=== PATIENT | female | born 1970 | race Caucasian/White ===

== ENCOUNTER 2020-05-22 11:06 | Outpatient (CLI) | payer BC, SELFPAY ==
--- NOTE | ~2020-05-22 | XR_ITS ---
XR hip RT min 3V w AP pelvis 05/22/2020 11:31 Indication: Right hip pain Procedure: 4 views right hip including AP pelvis Comparison: No prior studies for comparison. Findings: There is moderate osteoarthritis of the right hip. There is a small loose body in lateral t o the joint space. No fracture or traumatic malalignment. No significant soft tissue abnormality. No radiopaque foreign body. Impression: 1: Moderate osteoarthritis of the right hip. Reviewed, dictated and finalized at location B. F TECHNICIAN X RAY Impression: 1: Moderate osteoarthritis of the right hip.
== END 2020-05-22 11:07 | disposition home or self-care (01) ==
PROVIDERS: PCP Physician Assistant; Visit Provider Physician Assistant
DX: M16.11 Unilateral primary osteoarthritis, right hip (principal)
CPT/HCPCS: 73502

== ENCOUNTER → 2020-07-16 17:51 | Outpatient (CLI) | payer BC, SELFPAY ==
--- NOTE | ~2020-07-16 | MM_ITS ---
EXAMINATION: MM screening chrissy BI w leonor HISTORY: Screening TECHNIQUE: Craniocaudal and mediolateral oblique 3-D tomosynthesis images were obtained and synthetic 2-D images were generated. CAD analysis was submitted and interpreted. COMPARISON: Comparison to multiple prior studies sequentially, with oldest reviewed study dated 09/01. BREAST PARENCHYMAL COMPOSITION: The breasts are heterogeneously dense, which may obscure small masses . FINDINGS: There is no evidence of suspicious mass, calcification, or architectural distortion to sugg est malignancy in either breast. There has been no suspicious interval change. IMPRESSION: 1. No mammographic evidence of malignancy. 2. Recommend routine screening mammography in one year. BI-RADS Category 1: Negative Reviewed, dictated and finalized at location A. EGE SERVICE OFFICER
== END ==
PROVIDERS: PCP Physician Assistant; Visit Provider Physician Assistant
DX: Z12.31 Encounter for screening mammogram for malignant neoplasm of breast (principal)
CPT/HCPCS: 77063; 77067

== ENCOUNTER 2020-11-05 10:19 | Emergency (ER) | payer BC, SELFPAY ==
--- NOTE | ~2020-11-05 | XR_ITS ---
EXAMINATION: XR chest 2V EXAM DATE: 11/05/2020 10:54 INDICATION: Cough x 4 days, fever, hx of asthma . TECHNIQUE: Frontal and lateral projections of the chest obtained and reviewed. There is no prior harlan dy for comparison. FINDINGS: Patchy ill-defined multisegmental left lower lobe acute airspace disease, appearance most c onsistent with developing bacterial pneumonia. Right lung is clear. No pneumothorax or pleural effusi on. Cardiomediastinal silhouette is normal. There are no osseous abnormalities identified. IMPRESSION: Nonconfluent patchy left basilar acute airspace disease probably pneumonia. Reviewed, dictated and finalized at location A. IMPRESSION: Nonconfluent patchy left basilar acute airspace disease probably pn eumonia.
[2020-11-05 10:25] VITALS: BP 118/78; PULSE 95; RESP 12; TEMP 36.6; O2SAT 97
--- NOTE | 2020-11-05 10:32 | ED.GENADULT ---
HPI - General Adult General Chief complaint: Upper Respiratory Infection Stated complaint: covid Time Seen by Provider: 11/05/20 10:32 Source: patient and RN notes reviewed Mode of arrival: ambulatory Limitations: no limitations History of Present Illness HPI narrative: 49-year-old female presents with complains of cough, body aches, decrease appetite, fever, intermittent wheezing and shortness of breath for the past 4 days. Franny reports decrease appetite started initially with increasing upper respiratory symptoms daily with intermittent wheezing and shortness of breath. Increase usage of inhalers, Mucinex, Benadryl, Claritin, cough medicine containing codeine without relief. History of Asthma. Constant dry cough, intermittent productive yellow phlegm, and chest congestion. Rhinorrhea and nasal congestion. Denies sore throat. High fevers, fever as high as 101 Fahrenheit, orally, last noted today per Franny. Denies drooling, neck or throat swelling. No chest pain. No known exacerbation factors. Denies nausea, vomiting, and abdominal pain. Tolerating liquids well. LMP post menopausal. Remains active. The patient reports she have not been diagnosed with COVID-19. The patient reports she received 2 COVID-19 vaccines (name unknown). The patient reports she is not waiting for the results of a COVID-19 lab test. The patient reports she do not have chills, weakness, or fatigue. The patient reports she do not have any loss of taste or smell or diarrhea. Denies recent traveling. Denies concerns for COVID-19 or exposures. At this time, patient is not suspected of having COVID-19. Some parts of this dictation were generated by voice recognition software and may contain typographical and/or grammatical inaccuracies. Related Data Home Medications Medication Instructions Recorded Confirmed cholecalciferol (vitamin D3) 50 50 mcg PO DAILY 05/08/20 05/08/20 mcg (2,000 unit) capsule multivitamin with minerals 1 tablet PO DAILY 05/08/20 05/08/20 onntxbijmhbj-Fa-pvyv-minerals tablet PO 05/08/20 05/08/20 vitamin B complex 1 tablet PO DAILY 05/08/20 05/08/20 Allergies Allergy/AdvReac Type Severity Reaction Status Date / Time No Known Allergies Allergy Mild Verified 07/04/19 10:40 Review of Systems Review of Systems: Narrative: CONSTITUTIONAL: Complains of fever. Denies chills, sweats. EYES: Denies visual changes, redness, discharge. ENT: Complains of rhinorrhea, congestion. Denies sore throat, otalgia. CARDIOVASCULAR: Denies chest pain, palpitations, edema. RESPIRATORY: Complains of dyspnea, wheezing, cough, productiv e cough. GASTROINTESTINAL: Denies abdominal pain, nausea, vomiting, diarrhea. SKIN: Denies rash or itching. MUSCULOSKELETAL: Denies acute back pain, joint pain, or myalgia. NEUROLOGIC: Denies numbness or focal weakness. PSYCHIATRIC: Denies anxiety or depression. All systems reviewed & are unremarkable except as noted in HPI and below. [facility] Past Medical History Medical History (Updated 11/06/20 @ 00:01 by Reid Suarez) Asthma BMI 26.0-26.9,adult Bronchitis History of Graves' disease Hypothyroidism (acquired) Right hip pain Surgical History Surgical History No pertinent past surgical history Family History Family History (Updated 11/05/20 @ 11:00 by ROB Mota) Mother Diabetes mellitus Family history of cardiovascular disease Anxiety Heart disease Father Carcinoma of colon Social History Social History (Updated 11/05/20 @ 11:00 by ROB Mota) Smoking status: Former smoker Tobacco type: cigarettes Second hand tobacco smoke exposure: No Smoking end date: 06/21/86 Alcohol intake: current Substance use: never Substance use type: does not use Living arrangements: with family Occupation/Education: occupation Gender identity (if verbalized by the patient): Female Sexual Orie
[2020-11-05] MEDS: IPRATROPIUM BR 0.02% INH SOLN 0.5 MG/2.5 ML VIAL INHALATION (11:04)
[2020-11-05] MEDS: ALBUTEROL SULFATE NEB 2.5 MG/3 ML INH INHALATION (11:04)
[2020-11-05] MEDS: predniSONE 20 MG TABLET 60 MG PO (11:05)
[2020-11-05 11:25] VITALS: PULSE 93; RESP 24; O2SAT 100
[2020-11-05] MEDS: AZITHROMYCIN 250 MG TABLET 500 MG PO (11:31)
== END 2020-11-05 11:36 | disposition home or self-care (01) ==
PROVIDERS: Emergency Provider Nurse Practitioner Family; PCP Physician Assistant
DX: J18.9 Pneumonia, unspecified organism (principal); Z20.822 Contact with and (suspected) exposure to COVID-19; Z87.891 Personal history of nicotine dependence; J45.909 Unspecified asthma, uncomplicated; E03.9 Hypothyroidism, unspecified; E05.00 Thyrotoxicosis with diffuse goiter without thyrotoxic crisis or storm
CPT/HCPCS: 71046; 87426; 99213; A9270; C9803; G0463; J7512

== ENCOUNTER 2021-07-25 02:00 | Day surgery (SDC) | payer BC, SELFPAY ==
[2021-07-21 10:56] VITALS: BMI 25.7
--- NOTE | 2021-07-21 11:12 | PC.NURSE ---
Report to the Outpatient Waiting Room, entrance under the green pavilion located off [facility], at time 0600 on date 07/25/21. OR Time: 0730. - You will be asked a series of questions to screen for COVID 19 for your protection. - A mask is required within the hospital. - No visitors are allowed at this time. Preoperative COVID Testing Requirements: No COVID Test needed if: (proof is required; if not received patient will have Rapid Test prior to entry) - Patient has received COVID Vaccine at least 14 days prior to procedure date or - Patient has positive COVID test result within last 90 days of surgery date. COVID Test needed if above criteria is not met Patients may have clear liquids (water, carbonated beverages, clear teas, apple juice) until 3 hours prior to surgery with a maximum of 20 ounces. - No food from midnight until time of surgery Take the following medications with a SIP of water the morning of surgery: INHALERS, LEVOTHYROXINE Medications to discontinue per physician: VITAMINS/SUPPLEMENTS Date to take last dose: 07/21/[address] HAYES Please no make-up, nail italian, hairspray, perfume, deodorant, or body powder the day of surgery. No jewelry (including any body piercings) or valuables the day of surgery, leave them at home. Please take a shower or bath the night before, or the morning of, surgery with an antibacterial soap. Wear comfortable, loose fitting clothing. - Jewelry must be removed prior to entering the operating room. Rings and piercings that are not removed may be cut off. - The hospital will not accept responsibility for valuables. - Please leave all valuables, including medications, at home the day of surgery. If you are going home after surgery, a licensed security patrol driver must drive you home. - NO public transportation without another adult. - We recommend that an adult stay with you for 24 hours following discharge. - We also recommend that you do not drive, make important decision, drink alcoholic beverages, or take any drugs that were not prescribed by your health care provider for at least 24 hours after your discharge time. Follow any additional instructions given to you from your surgeon. Telephone instructions given to ELTNO PEREYRA and asked if any additional questions and then verbalized understanding. Patient advised to call surgeon office or pre surgery nurse liaison [phone] if any additional questions.
--- NOTE | 2021-07-24 16:55 | P.PNAN_ITS ---
Anes - Eval Pre Procedure Procedure: Operation Date: 07/25/21 07:30 Proposed Procedures p Arthrodesis of the First Metatarsal Phalangeal Joint Right Foot - Yakov Covarrubias JR, MD Date/Time: 07/24/21 16:55 Pre Op Diagnosis: Arthritis of First MPJ Right Foot Patient Data Age: 50 Gender: F Height: 1.6 m Weight: 65.77 kg Allergies Allergy/AdvReac Type Severity Reaction Status Date / Time No Known Allergies Allergy Mild Verified 07/21/21 10:52 Home Medications Medication Instructions Recorded Confirmed Type cholecalciferol (vitamin D3) 50 50 mcg PO DAILY 05/08/20 07/21/21 History mcg (2,000 unit) capsule fluticasone 250 mcg-salmeterol 50 1 inh INHALATION BID #60 ea 05/08/20 07/21/21 Rx mcg/dose blistr powdr for inhalation multivitamin with minerals 1 tablet PO DAILY 05/08/20 07/21/21 History vitamin B complex 1 tablet PO DAILY 05/08/20 07/21/21 History levothyroxine 150 mcg tablet 150 mcg PO DAILY #90 tablet 06/17/21 07/21/21 Rx meloxicam 15 mg tablet 15 mg PO DAILY #90 tablet 06/17/21 07/21/21 Rx albuterol sulfate 90 mcg/actuation See Rx Instructions .ROUTE 07/15/21 07/21/21 Rx aerosol inhaler .COMPLEX #8.5 g cetirizine [Zyrtec] 10 mg PO DAILY 07/21/21 07/21/21 History pseudoephedrine HCl [Sudafed 12 120 mg PO BID 07/21/21 07/21/21 History Hour] Patient hx anesthesia problems: post op nausea/vomiting Family hx anesthesia problems: none Results Review: All pre-operative results and documents have been reviewed as part of the pre-operative evaluation. [facility] Past Medical History Medical History (Updated 07/24/21 @ 16:56 by Juan Manuel Paul CRNA) Asthma BMI 26.0-26.9,adult Bronchitis Environmental allergies History of Graves' disease History of smoking Hypothyroidism (acquired) Mild persistent asthma without complication PONV (postoperative nausea and vomiting) Right hip pain Subcutaneous nodule of right foot Surgical History Surgical History No pertinent past surgical history Family History Family History Mother Diabetes mellitus Family history of cardiovascular disease Anxiety Heart disease Father Carcinoma of colon Social History Social History Smoking status: Former smoker Tobacco type: cigarettes Second hand tobacco smoke exposure: No Smoking end date: 06/21/86 Additional smoking assessment comments: 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
--- NOTE | ~2021-07-25 | XR_ITS ---
XR surgery orthopedic DATE: 07/25/2021 08:24 INDICATION: Right first metatarsophalangeal surgical fusion TECHNIQUE: 2 spot C-arm images, AP and lateral views 5 seconds fluoroscopy time Total DAP: 0.3015 cGycm2 COMPARISON: None FINDINGS: Plate and screws extend from the dorsal aspect of the neck of the first metatarsal to the d istal shaft of the proximal phalanx of the first digit, bridging the first metatarsophalangeal joint. IMPRESSION: Surgical fusion at the first metatarsophalangeal joint Reviewed, dictated and finalized at Location A. Reviewed, dictated and finalized at location B. COPTER TECHNICIAN
--- NOTE | 2021-07-25 07:10 | WPDANESEFPP ---
Anes - Eval Final PreProcedure Day of Procedure 07/25/21 07:10 Patient weight: normal Heart: regular rate and rhythm Lungs: clear to auscultation Airway: Mallampati scale class II Neurological: alert and oriented Last oral intake: >/= 8 hours ASA classification: II Emergent: no Anesthetic plan: proceed Anesthesia type and monitoring: general LMA and standard monitoring Results Review: All pre-operative results and documents have been reviewed as part of the pre-operative evaluation. Informed Consent: The patient's anesthetic plan and its attendant risks and benefits were discussed with the patient/family/POA. Questions were solicited and answers provided to the satisfaction of the patient/family/POA.
--- NOTE | 2021-07-25 07:11 | WPDHPUPDATE1 ---
History and Physical Update Update Date/Time: 07/25/21 07:11 History and Physical has been reviewed, including an updated exam of the patient. There are NO changes in the patient's condition. Risks, benefits, and alternatives have been discussed and questions answered. Patient agrees to proceed with procedure.
[2021-07-25 07:19] VITALS: BP 111/67; PULSE 85; RESP 16; TEMP 36.6; O2SAT 98
[2021-07-25] MEDS: LACTATED RINGERS 1,000 ML 30 ML IV CONT ×2 (07:20→08:43)
--- NOTE | 2021-07-25 07:32 | WPDANESPNB ---
Anes - Peripheral Nerve Block Date/Time: 07/25/21 07:32 I have discussed with the patient/family/POA the placement of a peripheral nerve block for post-operative pain management, including associated risks, benefits, complications, and side effects. Alternative methods of post-operative analgesia were detailed. Questions were solicited and answers provided to the satisfaction of the patient/family/POA. Time-Out: A pre-procedural Time-Out was completed immediately before starting the procedure and confirmed: Patient Identification, Site, Procedure, Patient Position and the Availability of Requisite Equipment. Clinical Indications: Acute post-operative pain management requested by the operative surgeon. Nerve Block Insertion Note Anes-nerve block: posterior fossa sciatic right and other (saphenous) Patient position: supine Needle: 22 gauge, stimulating, insulated echogenic needle. Needle length: 80 mm Technique: nerve stimulation lost at (mA) (0.4) Injectate: bupivacaine 0.5% with epi 5 mcg/ml (30) and dexamethasone (mg) (8) Observations: tolerated well Complications: none Procedure start time:: 721 Procedure end time:: 727
[2021-07-25] MEDS: ceFAZolin 2 GM/D5W 50 ML 2 GM/50 ML BAG IVPB (07:33)
--- NOTE | 2021-07-25 08:47 | W.PM.PROC2 ---
Procedure Note - Detailed Date of Procedure 07/25/21 Pre-op Diagnosis Arthritis of First metatarsal phalangeal joint right Foot Post-op Diagnosis same Procedure Performed Arthrodesis of the first metatarsal phalangeal joint right foot Surgeon Yakov Covarrubias JR, FABIAN Anesthesia general and regional Indications Pain to the right first metatarsal phalangeal joint right foot Description of Procedure PROCEDURE IN DETAIL: Under mild sedation, the patient was brought into the operating room, placed on the operating table in supine position. A pneumatic ankle tourniquet was placed about the patient's ipsilateral ankle. Following general LMA, a previous popliteal fossa block. The foot was then scrubbed, prepped, and draped in the usual aseptic manner. An Esmarch bandage was then used to exsanguinate the patient's foot and the pneumatic ankle tourniquet was then inflated. Surgery began in the following manner: Attention was directed to the dorsal aspect of the 1st metatarsophalangeal joint where there was a large subcutaneous prominence noted along the dorsomedial aspect of the joint. The incision was made starting along the central shaft of the 1st metatarsal and extending just proximal to the interphalangeal joint of the hallux. The incision was continued deep down through the subcutaneous tissues using sharp and blunt dissection. All bleeders were cauterized as necessary. At this point, the dissection was continued down to the level of the periosteum and capsular structures overlying the 1st metatarsophalangeal joint. A full length periosteum and capsular incision was made just medial to the extensor hallucis longus tendon. The periosteum and capsular structures were freed from the base of the proximal phalanx as well as the distal 1st metatarsal. At this point, the 1st metatarsophalangeal joint was identified. There was almost complete loss of articular cartilage to the head of the 1st metatarsal as well as the base of the proximal phalanx. There was significant broadening and hypertrophy of the 1st metatarsophalangeal joint. Utilizing a sagittal bone saw, the hypertrophied 1st metatarsal was resected dorsally, medially, and laterally. A power bur was used to make sure that there were no rough edges and also to further debride the hypertrophic 1st metatarsal. Next, a rongeur was used to resect all hypertrophic base of the proximal phalanx. At this point, the reamer system for the [employer] CrossCHECK system was used to denude the degenerative cartilage from the head of the 1st metatarsal as well as the base of the proximal phalanx. The cartilage and subchondral bone were fully debrided utilizing the reamer system until healthy bleeding bone was noted. Next, a 2-0 drill bit was used to further fenestrate the head of the 1st metatarsal as well as the base of the proximal phalanx in order to allow fusion across the 1st metatarsophalangeal joint. Next, a 0.045 inch K-wire was driven from the medial aspect of the base of the proximal phalanx into the head of the 1st metatarsal in order to serve as temporary fixation. A large steel plate was used to make sure that the hallux was in a rectus position both in the sagittal plane as well as the frontal and transverse plane. Excellent position of the hallux was noted. Next, a CrossCHECK plate was placed atop the 1st metatarsophalangeal joint held in position with [place] wires. Utilizing standard principles and techniques, the 2 distal drill holes were drilled and two 2.7mm mm fully-threaded locking screws were driven from dorsal to plantar holding the distal aspect of the plate intact. At this point, a 3.5mm lag screw was driven from dorsal distal to proximal plantar across the 1st metatarsophalangeal joint through the plate system with excellent compression noted after careful removal of the olive wire and temporary fixation from the 1st metatarsophalangeal joint. Next, 2 proximal drill hole
[2021-07-25 08:50] VITALS: BP 119/93; PULSE 89; RESP 14; TEMP 36.1; O2SAT 99
[2021-07-25] MEDS: fentaNYL CITRATE INJ (*CRX) 100 MCG/2 ML VIAL 25 MCG IV PUSH ×2 (09:04→09:07)
[2021-07-25 09:05] VITALS: BP 121/83; PULSE 78; RESP 16; O2SAT 100
[2021-07-25 09:20] VITALS: BP 105/77; PULSE 83; RESP 20; O2SAT 100
[2021-07-25] MEDS: diphenhydrAMINE HCl INJ 50 MG/ML VIAL 25 MG IV PUSH (09:27)
[2021-07-25 09:35] VITALS: BP 109/78; PULSE 79; RESP 14; O2SAT 99
[2021-07-25 09:55] VITALS: BP 120/76; PULSE 75; RESP 16
== END 2021-07-25 11:01 | disposition home or self-care (01) ==
PROVIDERS: Visit Provider Podiatrist Foot & Ankle Surgery
PROC: (CPT 28750; principal; 2021-07-25 07:30)
DX: M13.871 Other specified arthritis, right ankle and foot (principal); G89.18 Other acute postprocedural pain; E03.9 Hypothyroidism, unspecified; Z79.51 Long term (current) use of inhaled steroids; E05.00 Thyrotoxicosis with diffuse goiter without thyrotoxic crisis or storm; J45.30 Mild persistent asthma, uncomplicated; Z87.891 Personal history of nicotine dependence
CPT/HCPCS: 28750; 64445; 64450; A9270; C1713; J0690; J1100; J1170; J1200; J2250; J2405; J2704; J3010; J7120

== ENCOUNTER 2021-11-13 13:25 | Outpatient (CLI) | payer BC, SELFPAY ==
--- NOTE | ~2021-11-13 | XR_ITS ---
EXAMINATION: XR knee LT min 4V DATE: 11/13/2021 13:40 INDICATION: Left knee injury TECHNIQUE: AP, left and right oblique and flexed lateral views of the left knee were obtained. COMPARISON: None. FINDINGS: Alignment is normal. No fracture. Joint spaces appear normal on nonweightbearing imaging. No left kne e joint effusion. Soft tissues are unremarkable. IMPRESSION: 1. Negative left knee radiographs. Reviewed, dictated and finalized at location B.
== END 2021-11-13 13:26 ==
LOC: MICIMG 13:26
PROVIDERS: PCP Family Medicine; Visit Provider Physician Assistant
DX: S89.92XA Unspecified injury of left lower leg, initial encounter (principal)
CPT/HCPCS: 73564

== ENCOUNTER → 2022-05-21 15:44 | Outpatient (CLI) | payer BC, SELFPAY ==
--- NOTE | ~2022-05-21 | MR_ITS ---
EXAMINATION: MR knee LT wo con DATE: 05/21/2022 16:22 INDICATION: Left knee pain. TECHNIQUE: Magnetic resonance imaging (MRI) of the left knee was performed without intravenous contra st. Sequences included axial PD-weighted FS FSE, coronal PD-weighted FSE and PD-weighted FS FSE, sagi ttal PD-weighted FSE, and sagittal T2-weighted FS FSE. COMPARISON: Left knee radiographs 05/07/2022 FINDINGS: Medial compartment: There is a complex tear involving body and posterior horn of medial meniscus. There is partial-thickn ess cartilage loss of tibial condyle, deep at the medial articular surface. There is partial-thicknes s cartilage loss of femoral condyle, deep at the central and medial articular surface. Lateral compartment: Lateral meniscus is normal. Lateral compartment cartilage is normal. Patellofemoral compartment: There is deep partial thickness cartilage loss of patellar medial facet with mild subchondral edema-l lior marrow signal intensity. The trochlear cartilage is normal. Ligaments and tendons: The anterior and posterior cruciate ligaments are normal. There are changes of prior sprains of media l collateral ligament and fibular collateral ligament characterized by increased signal intensity pro ximally. There is mild patellar tendinopathy. Fluid: There is a small knee joint effusion. Osseous/other: There is mixed signal intensity in medial femoral condyle posteriorly, consistent with osteonecrosis. IMPRESSION: 1. Moderate chondrosis of medial and patellofemoral compartments. 2. Complex tear of medial meniscus. 3. Osteonecrosis involving medial femoral condyle posteriorly. 4. Small knee joint effusion. Reviewed, dictated and finalized at location A. HELP DESK TECHNICIAN
== END ==
PROVIDERS: PCP Physician Assistant Medical; Visit Provider Nurse Practitioner Family
DX: S83.232A Complex tear of medial meniscus, current injury, left knee, initial encounter (principal); X58.XXXA Exposure to other specified factors, initial encounter; M25.462 Effusion, left knee
CPT/HCPCS: 73721